=== PATIENT | male | born 1980 | race Caucasian/White ===

== ENCOUNTER 2017-07-03 11:29 | Emergency (ER) | payer OTHER ==
[~2017-07-03] VITALS: Ht 182.9 cm; Wt 102.1 kg
[2017-07-03] MEDS ORDERED: SIMVASTATIN20 MG PO (11:38)
--- NOTE | 2017-07-03 11:49 | Emergency Room Report ---
History of Present Illness Time Seen by [id number] Presenting Problem in Triage Pt arrived:Walked Presenting Problem:PT REPORTS BEGAN NOTICING DIFFICULTY SWALLOWING YESTERDAY, NOTICED THIS MORNING TO HAVE A L SIDED FACIAL DROOP ON SMILE ONLY, NO OTHER UNILATERAL DEFICITS NOTED. 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 N Clinical Suspician of Infection? N Mental Status: 1 - Regular (Normal Baseline) Sepsis Risk:Low Sepsis Risk Have you (or family members/close friends) recently traveled outside the [place]? N If Yes, where/when: Have you had exposure to infectious disease within the past month? N TB? Other? Specify: Source patient, RN notes reviewed, family, old records Exam Limitations no limitations Comment acute onset of rt sided palsy which started last pm - pt with no visual loss and no speech or sensory or motor loss and no trauma or fever and no rash Cardiac Chest Pain Chest pain indicative of cardiac No Timing/Duration this evening Severity moderate ALLERGIES Coded Allergies: No Known Allergies (07/03/17) Home Medications Reported Medications Simvastatin 20 MG PO QHS #30 History Medical History General CAD? No Angina: No PA: No Hypertension? Yes Hyperlipidemia? Yes CHF? No DVT? No PE? No COPD? No Asthma? No Anemia? No GERD? No Gastric ulcers? No GI Bleed? No Hernia? No Thyroid Problems? No Hypothyroidism? No CVA? No Seizures? No Diabetes? No Renal Insuffiency? No End Stage Renal Disease? No UTI? No Stones? No GB Disease: No Nephritic Syndrome? No Asplenia? No Hepatitis? No Sickle Cell Disease? No Arthritis? No Migraines? No Cataracts? No Glaucoma? No MRSA? No HIV? No TB? No Anxiety? No Depression? No Cancer? No More? No Immunization Hx DT/Tetanus 5-10 YRS Surgical Hx Previous Surgery?Y BILATERAL HIP REPAIR Social History Smoking Hx Smoker: Never Smoker Tobacco: No Alcohol Alcohol: No Drugs none Review of Systems All Other Systems Reviewed and Negative Constitutional denies fever Eyes denies drainage ENT denies: ear discharge, epistaxis, throat swelling. Respiratory denies cough, denies shortness of breath Cardiovascular denies chest pain, denies syncope Gastrointestinal denies abdominal pain, denies diarrhea, denies vomiting Genitourinary denies: dysuria, frequency, hesitancy, hematuria. Musculoskeletal denies back pain, denies joint pain, denies joint swelling, denies neck pain Skin denies rash Psychiatric/Neurological see HPI, denies headache, denies seizure, other Physical Exam Vital Signs Vital Signs Date Time Temp Pulse Resp B/P Pulse O2 O2 Flow FiO2 Ox Delivery Rate 07/03 1301 98.0 61 18 128/82 98 07/03 1132 98.9 80 18 134/91 97 - WBC >12,000 or <4,000 or 10% bands? 2 or more SIRS Criteria Met? B/P:128/82 MAP:105 Creatinine >2.0? UA output<0.5ml/kg/hr for 2 hrs? Platelet count >100,000? Lactate >2.0mmol/1? INR >1.2 or PTT > than 60 sec? Evidence of Organ Dysfunction? Provider documented clinical suspician of infection? N Sepsis Criteria Count: 0 Sepsis Risk: Low Sepsis Risk General Appearance no apparent distress Eye Exam - bilateral eye PERRL, bilateral eye EOMI Ear, Nose, Throat normal ENT inspection Neck supple Respiratory Status No: respiratory distress. 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 No Results/Orders Laboratory Tests 07/03/17 1150: Sodium 143, Potassium 4.5, Chloride 107, Carbon Dioxide 29, BUN 10, Creatinine 1.1, Estimated Creat Clear 131, Estimated GFR (MDRD) 75, Glucose 107 H, Calcium 9.1, Total Bilirubin 0.5, AST 34, ALT 40, Alkaline Phosphatase 82, Total Protein 7.7, Albumin 4.3, Globulin 3.4 H, Albumin/Globulin Ratio 1.3, WBC 5.2, RBC 5.34 , Hgb 15.7, Hct 45.9, MCV 86.1, RDW 12.3, Plt Count 251, MPV 7.0 L, Gran % 57.4 , Gran # 3.0, Lymphocytes % 27.6, Monocytes % 5.9, Eosinophils % 8.7, Basophils % 0.5, Lymphocytes # 1.4, Monocytes # 0.3, Eosinophils # 0.5 H, Basophils # 0.0 , PUBS MCHC 34.3, ESR 7, MCH 29.5 Current Medication Orders Sig/Ava Start time Last Medication Dose Route Stop Time Status Admin Lidocaine HCl 0 .STK-MED ONE 07/03 1303 DC .ROUTE Sodium Chloride 10 ML PRN PRN 07/03 1145 AC IV 07/04 1139 Orders Procedure Date/time Status DIET-NOTHING BY MOUTH 07/03 D Active IV SALINE LOCK 07/03 1140 Active SED RATE 07/03 1140 Complete COMPLETE METABOLIC PANEL 07/03 1140 Complete CBC WITH AUTO DIFF 07/[address] HEAD REQ 07/03 1139 Complete XRAY/CT/US XRAY/CT/US CT head CT interpretation by discussed w/radiologist Time results known: 1303 CT Results normal/NAD Departure Departure Time of Disposition 1257 Disposition DC Home or Self Care(routine) Clinical Impression Primary Impression: Resendiz's palsy Condition STABLE Referrals Darin Thomas MD (Family) Patient Instructions DI for Resendiz's Palsy Additional Instructions use meds and see pcp for follow up Discharge Counseling Counseled pt/family regarding diagnosis, test results, medications/RX, follow up needs Prescriptions Current Visit Scripts Prednisone (Prednisone 20MG) 20 MG PO BID #12 TAB Acyclovir (Acyclovir 800MG) 800 MG PO QID #40 TAB ED Critical Care Critical Care No Comments discussed eye moisture at 1305
[2017-07-03 11:58] LABS: HEMOGLOBIN 15.7 g/dL (14.1-18.0); LYMPH # 1.4 K/mm3 (0.7-4.5); LYMPH % 27.6 % (10-50)
--- NOTE | 2017-07-03 12:35 | RADIOLOGY REPORT PS360 ---
CT HEAD W/O CONTRAST INDICATION: Right-sided facial numbness Routine axial images for brain followed by additional post-processing axial bone window images. Axial CT scanning from the base of the skull through the vertex to evaluate the brain was performed. Subsequent post processing 2-D CT bone windows were submitted to PACS and are useful to evaluate calvarium, visualize portions of paranasal sinuses, mastoids and base of skull. Multiaxial scans are obtained from the base of the skull to the vertex and performed without contrast. The base of the skull appeared normal. There are minimal inflammatory changes in the ethmoid sinuses. The ventricular system was normal. There was no ischemic infarct or bleed and there were no extra-axial fluid collections. The bony calvarium appeared intact. IMPRESSION: Negative noncontrast CT scan of the brain.
[2017-07-03] MEDS ORDERED: PREDNISONE 20MG20 MG PO (13:05)
[2017-07-03] MEDS ORDERED: ACYCLOVIR800 MG PO (13:05)
[2017-07-03 13:07] VITALS: BP 128/82
== END 2017-07-03 13:07 | disposition home or self-care (01) ==
LOC: ER 11:29
PROVIDERS: Emergency Medicine
DX: G51.0 Bell's palsy (principal); I10 Essential (primary) hypertension; E78.5 Hyperlipidemia, unspecified